=== PATIENT | male | born 1995 | race Caucasian/White ===

== ENCOUNTER → 2017-09-01 | Outpatient (CLI) | payer OTHER | LOC: OD 15:38 | PROVIDERS: ATTEND Otolaryngology | DX: J30.9 Allergic rhinitis, unspecified (principal) | CPT/HCPCS: 36415; 82785; 86003 ==

== ENCOUNTER 2017-09-07 07:53 | Day surgery (SDC) | payer OTHER ==
[~2017-09-07 07:53] MED LIST: CARBOXYMETHYLCELLULOSE SOD 0.5% 0.4 ML DROPERETTE ONE; CEFAZOLIN 2 GM/D5W RTU 2 GM/50 ML RTUPB IV PRN; CEFAZOLIN SODIUM 2 GM in NORMAL SALINE 100 ML IV PRN; DEXAMETHASONE SOD PHOS INJ 10 MG/1 ML VIAL ONE; DEXMEDETOMIDINE INJ 80 MCG/20 ML VIAL IV ONE; FENTANYL CITRATE INJ/PF 100 MCG/2 ML AMPUL ONE; HYDROMORPHONE HCL INJ/PF 2 MG/ML AMPULE ONE; MIDAZOLAM 2 MG/2 ML INJ ONE; ONDANSETRON HCL INJ/PF 4 MG/2 ML SDV ONE; PROPOFOL INJ 200 MG/20 ML VIAL IV ONE; ROCURONIUM BROMIDE INJ 50 MG/5 ML VIAL IV ONE; SUCCINYLCHOLINE CHLORIDE INJ 200 MG/10 ML VIAL ONE
[2017-09-07] MEDS ORDERED: SCOPOLAMINE HYDROBROMIDE 1.5 MG PATCH.TD72 TD PRN (08:59)
[2017-09-07] MEDS ORDERED: LIDOCAINE 0.5% INJ-PF (5 MG/ML) 50 ML SDV SUBCUT PRN (09:03)
[2017-09-07] MEDS ORDERED: RINGERS SOLUTION,LACTATED 1,000 ML IV PRN (09:03)
[2017-09-07] MEDS ORDERED: DIPHENHYDRAMINE HCL 50 MG/ML VIAL ONE (09:29)
[2017-09-07] MEDS ORDERED: OXYMETAZOLINE HCL 0.05% NASAL SPRAY 15 ML BOTTLE ONE (09:32)
[2017-09-07] MEDS ORDERED: BUPIVACAINE HCL 0.5%/EPI 1:200000 INJ 1.8 ML CARTRIDGE ONE (09:32)
[2017-09-07] MEDS ORDERED: BUPIVACAINE HCL 0.5%-EPI 1:200000 INJ/PF 30 ML VIAL ONE (09:32)
[2017-09-07] MEDS ORDERED: WATER FOR INJECTION,STERILE 10 ML SDV ONE ×2 (09:42→11:19)
[2017-09-07] MEDS ORDERED: NORMAL SALINE INJ/PF 0.9% 10 ML SDV ONE (09:42)
[2017-09-07] MEDS ORDERED: MINERAL OIL (STERILE) 10 ML VIAL ONE (12:24)
[2017-09-07] MEDS ORDERED: OXYCODONE-ACETAMINOPHEN 5-325 MG TABLET ONE (15:07)
[2017-09-08] MEDS ORDERED: RINGERS SOLUTION,LACTATED 250 ML IV PRN (05:00)
--- NOTE | 2017-09-08 23:19 | [facility]ARE OPERATIVE REPORT E ---
[facility] NAME: JOBY RAMIREZ AGE: 22Y DATE OF SURGERY: 09/08/2017 PREOPERATIVE DIAGNOSES: 1. NASAL SEPTAL DEVIATION, ACQUIRED. 2. NASAL DEFORMITIES, ACQUIRED. 3. CHRONIC NASAL DYSPNEA. 4. BILATERAL TURBINATE HYPERTROPHY. 5. ACUTE RECURRENT AND CHRONIC SINUSITIS. POSTOPERATIVE DIAGNOSES: 1. NASAL SEPTAL DEVIATION, ACQUIRED. 2. NASAL DEFORMITIES, ACQUIRED. 3. CHRONIC NASAL DYSPNEA. 4. BILATERAL TURBINATE HYPERTROPHY. 5. ACUTE RECURRENT AND CHRONIC SINUSITIS. OPERATION PERFORMED: 1. Image guidance functional endoscopic sinus surgery. 2. Bilateral maxillary antrostomies without tissue removal and with bilateral transnasal rigid surgical endoscopy. 3. Bilateral frontal sinus balloon sinuplasty with bilateral transnasal rigid surgical endoscopy. 4. Bilateral middle turbinate reductions. 5. Endonasal/closed septorhinoplasty addressing the bony pyramid component. 6. Bilateral inferior turbinate reduction. SURGEON: KIM MENDIOLA D.O. ANESTHESIA: General endotracheal tube. ANESTHESIA STAFF: Andrea Lester CRNA ESTIMATED BLOOD LOSS: 150 mL FLUIDS: 1400 mL COMPLICATIONS: None. DRAINS: None. SPONGE COUNT: Verified. MATERIALS FORWARDED SPECIMEN: None. FINDINGS: 1. Moderate to severe right nasal septal deviation involving bone and cartilage, with maxillary crest spur and septal spur noted. 2. Left external nasal deviation. 3. Bilateral middle and inferior turbinate hypertrophy. 4. No sinonasal polyps noted. 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 The patient had been returned for, and he complained of, a history of chronic nasal dyspnea over the years. The patient reports a history of nasal trauma with resulting nasal deformities. The patient also reports a history of acute recurrent and chronic sinusitis symptoms over the years. There was extensive discussion held with the patient with clinic endoscopy and CT sinus imaging also completed. Recommendation and plan was made to proceed with an endonasal/closed septorhinoplasty with the bony pyramid being addressed with medial and lateral osteotomies, inferior and middle turbinate reductions, image guidance functional endoscopic sinus surgery with bilateral maxillary antrostomies and bilateral balloon frontal sinuplasty. The procedures and all of their risks and complications were all discussed in detail with the patient. He voiced an understanding of the described surgical plan, agreed to proceed, and consent was obtained. PROCEDURE: The patient was taken to the main operating room and placed on the operating room table in the supine position. Appropriate monitors were placed. Using mask and IV access, general anesthesia was induced. The patient was then transorally intubated without difficulty. At this point the patient was positioned and prepped for nasal and sinus surgery. The patient underwent a nasal examination with injection of local anesthetic with epinephrine to establish a nasal block. The patient had 2 Afrin-soaked neuro patties placed per nasal passage. The imaging guidance system was set up and tested appropriately before beginning the case. The patient was then prepped and draped in the usual fashion for sinus and nasal surgery. The Afrin-soaked neuro patties were removed. The patient underwent a hemitransection incision with elevation in the mucoperichondrial and periosteal flaps without difficulty. The bony cartilaginous junction was identified and divided, with the most deviated portions of septal cartilage and bone being removed. The cartilaginous septum was mobilized from the anterior nasal spine and maxillary crest. With the use of a V chisel and nasal surgical instruments, the maxillary crest and septal spur were removed without difficulty. There was a greater than 1.5 x 1.5 cm, cartilaginous L strut that was preserved. At this point the turbinate bipolar wand was used to make 2 passes in each inferior turbinate. The anterior aspect of each inferior turbinate was entered with a pair of Tello scissors, followed by elevation of tissue in the submucosal plane with a [place] elevator. At this point the turbinate microdebrider system at a setting of 1500 RPM was used to perform submucous resection bilateral. The Wilfredo elevator was used to outfracture each inferior turbinate. The excessive/redundant mucosa was trimmed, and the margins were reapproximated with chromic suture. The image guidance functional endoscopic sinus surgery portion of the case was performed in the following manner. With use of bilateral transnasal rigid surgical endoscopy and sinus surgical instrumentations, including microdebrider system at a setting of 3000 RPM, the bilateral maxillary antrostomies were performed without difficulty. Findings were as noted above. The balloon frontal sinus sinuplasty system was used at each frontal sinus recess area and was inflated to 12 atmospheres at 2 different positions bilateral. Once complete, the sinuplasty system was withdrawn. As a part of performing the maxillary antrostomies, the anterior portion of the middle turbinates were reduced. Prior to this, a straight Pat clamp was used to create controlled fractures in each middle turbinate. At this point the rhinoplasty portion of the case was addressed, which focused on the bony nasal pyramid. Medial and lateral osteotomies were performed along with dorsal rasp work. Subperiosteal tunnels were created just superior to the takeoff of the inferior turbinates for the lateral osteotomies, which were performed without difficulty. There were intercartilaginous incisions performed with elevation of the skin soft-tissue envelope in a subperiosteal plane. At this point, medial osteotomies were performed without difficulty with mobilization of the bony nasal sidewalls. There was also dorsal rasp work that was performed. At this point the septal cartilage was secured in the midline at the anterior nasal spine using 5-0 clear nylon suture. Once complete the nose was thoroughly irrigated and suctioned, with adequate hemostasis noted. The cartilage that had been previously removed was placed back between the mucosal flaps and banked. There was septal cartilage that was also fashioned into a right dorsal onlay graft, and this was secured in position with a through and through and 6-0 Prolene suture. At this point, all incisions were reapproximated with chromic suture. Chromic suture was also used to repair a right septal mucosal rent in the area where the maxillary crest spur had been. At this point there was 1 Darby silicon nasal splint with bacitracin ointment that was placed per side. These were secured at the caudal aspect with 4-0 Prolene suture. The patient's nose was then cleaned and dried, followed by placement of Mastisol, Steri-Strips, and a Travis aluminum nasal splint. Once complete, the patient was returned to the anesthesia staff and was allowed to emerge from general anesthesia. The patient was extubated in the main operating room, and was then transported to the postanesthesia recovery unit in stable condition. There were no complications. DICTATING PHYSICIAN: KIM MENDIOLA D.O. [id number] PHY#: [id number] ID: [id number] JOB#: [id number] ACCT: [id number] cc:KIM MENDIOLA D.O. >
== END 2017-09-07 16:08 | disposition home or self-care (01) ==
LOC: SC 07:53 → EDSEX 09:00 → SC 16:08
PROVIDERS: ATTEND Otolaryngology
PROC: 09TL8ZZ Resection of Nasal Turbinate, Via Natural or Artificial Opening Endoscopic (ICD-10-PCS; 2017-09-07)
PROC: 0NR Head and Facial Bones, Replacement (ICD-10-PCS; 2017-09-07)
PROC: 099R4ZZ Drainage of Left Maxillary Sinus, Percutaneous Endoscopic Approach (ICD-10-PCS; principal; 2017-09-07 09:00)
DX: J34.2 Deviated nasal septum (principal); J01.91 Acute recurrent sinusitis, unspecified; M95.0 Acquired deformity of nose; R06.09 Other forms of dyspnea; J34.3 Hypertrophy of nasal turbinates; J32.8 Other chronic sinusitis; J34.89 Other specified disorders of nose and nasal sinuses; Z88.1 Allergy status to other antibiotic agents
CPT/HCPCS: 31256; 30140; 30420; 31296; J2250; J3490 ×7; J1200; J3010; J1170; J0330; J2405; J2704; J1100; J0690; 160